=== PATIENT | male | born 1975 | race Hispanic/Latino ===

== ENCOUNTER 2022-09-06 07:28 | Emergency (ER) | payer OTHER ==
[~2022-09-06] VITALS: Ht 172.7 cm; Wt 110.5 kg
[2022-09-06] MEDS ORDERED: LISINOPRIL20 MG PO (07:38)
[2022-09-06] MEDS ORDERED: ONDANSETRON ODT4 MG PO (11:35)
== END 2022-09-06 11:38 | disposition home or self-care (01) ==
LOC: ED 07:28
DX: K29.20 Alcoholic gastritis without bleeding (principal); I10 Essential (primary) hypertension; E11.9 Type 2 diabetes mellitus without complications; E78.00 Pure hypercholesterolemia, unspecified; Z79.899 Other long term (current) drug therapy
CPT/HCPCS: 36415; 80053; 81001; 83690; 83735; 85025; 85610; 96361; 96374; 96375; 99284-25; G0480; J2405; J2550; J3411; J7030

== ENCOUNTER 2024-04-27 19:52 | Emergency (ER) | payer SELFPAY ==
[~2024-04-27] VITALS: Ht 172.7 cm; Wt 102.1 kg
[~2024-04-27 19:52] MED LIST: LISINOPRIL20 MG PO; ONDANSETRON ODT4 MG PO
[2024-04-27] MEDS ORDERED: ATORVASTATIN CA20 MG PO (20:06)
[2024-04-27] MEDS ORDERED: METFORMIN HCL500 M1 PO (20:06)
[2024-04-27] MEDS ORDERED: FAMOTIDINE40 MG PO (20:06)
[2024-04-27] MEDS ORDERED: LACTATED RINGER'S 1,000 ML IV ONE (20:15)
[2024-04-27] MEDS ORDERED: ONDANSETRON 4 MG TAB ODT SL ONE (20:15)
[2024-04-27] MEDS ORDERED: THIAMINE HCL IV ONE (20:15)
[2024-04-27] MEDS ORDERED: MULTIVITAMINS FOLIC ACID IV ONE (20:15)
[2024-04-27] MEDS ORDERED: [UNRECOGNIZED DRUG - OTHER] IV ONE (20:15)
[2024-04-27] MEDS ORDERED: THIAMINE HCL 200 MG/2 ML VIAL ONE (20:16)
[2024-04-27 20:25] LABS: BASOPHILS 0.2 % (0-2); EOSINOPHILS 0.3 % (0-6); HEMATOCRIT 49.2 % (35.0-50.0); LYMPHOCYTES 43.9 % (24-44); MCHC 34.5 g/dl (30-36); MCV 89.9 fl (81-99); MONOCYTES 4.3 % (0-12); NEUTROPHILS 51.3 % (39-80); PLATELET COUNT 250 K/uL (140-440); RBC 5.48 M/ul (4.3-5.7); RDW 13.5 (10.5-15.0)
[2024-04-27 20:36] LABS: INR 1.11 (0.80-1.30); PROTIME 13.6 Sec (11.2-14.2)
[2024-04-27 20:42] LABS: ALBUMIN 3.9 g/dL (3.4-5.0); ANION GAP 15.1 (7-21); BILIRUBIN, TOTAL 0.8 ng/dL (0.2-1.0); BUN/CREATININE RATIO 10.34 (6.0-28.6); CALCIUM 8.1 mg/dL (8.5-10.1); CREATININE, SERUM 1.16 mg/dL (0.70-1.30); POTASSIUM 3.1 mmol/L (3.5-5.1); PROTEIN, TOTAL 7.8 g/dL (6.4-8.2)
[2024-04-27] MEDS ORDERED: ONDANSETRON ODT8 MG PO (21:13)
[2024-04-27] MEDS ORDERED: FOLIC ACID1 MG PO (21:15)
[2024-04-27] MEDS ORDERED: VITAMIN B-1100 M1 PO (21:15)
[2024-04-27] MEDS ORDERED: POTASSIUM CHLORIDE 10 MEQ TABCR PO ONE (21:30)
[2024-04-27] MEDS ORDERED: ONDANSETRON 4 MG HOME.PACK SL ONE (21:30)
[2024-04-27 23:11] VITALS: BP 147/83
== END 2024-04-27 23:12 | disposition home or self-care (01) ==
LOC: ED 19:52
PROVIDERS: Family Medicine
DX: F10.10 Alcohol abuse, uncomplicated (principal); I10 Essential (primary) hypertension; E11.9 Type 2 diabetes mellitus without complications; E78.00 Pure hypercholesterolemia, unspecified; Z79.899 Other long term (current) drug therapy; Z79.84 Long term (current) use of oral hypoglycemic drugs; Y90.8 Blood alcohol level of 240 mg/100 ml or more
CPT/HCPCS: 36415; 80053; 83690; 83735; 85025; 85610; 96365; 96366; 99284-25; A9270; G0480; J3411; J7042; J7121